=== PATIENT | female | born 1960 | race Caucasian/White ===

== ENCOUNTER → 2016-06-26 | Outpatient (CLI) | payer OTHER ==
[2016-06-26 12:19] LABS: EKG EKG PERFORMED
[2016-06-26 12:44] LABS: Basophils # (A) 0.1 k/uL (0-0.2); Basophils % (A) 1 %; CH 32.2; CHCM 33.7; Eosinophils # (A) 0.1 k/uL (0-0.7); Eosinophils % (A) 1 %; HCT 50.7 % (34.0-46.0); HDW 2.69; HGB 16.5 gm/dL (11.4-16.0); Luc # (Auto) 0.09; Luc % (Auto) 1; Lymphocytes # (A) 2.5 k/uL (1.0-4.8); Lymphocytes % (A) 29 %; MCH 31.3 pg (25.0-35.0); MCHC 32.6 g/dL (31.0-37.0); Monocytes # (A) 0.4 k/uL (0-1.0); Monocytes % (A) 5 %; Neutrophils # (A) 5.4 k/uL (1.3-7.7); Neutrophils % (A) 63 %; RBC 5.28 m/uL (3.80-5.40); WBC 8.5 k/uL (3.8-10.6); WBC (Perox) 8.15
[2016-06-26 12:54] LABS: Partial Thromboplastin Time 23.9 sec (22.0-30.0); Prothrombin Time 10.4 sec (9.0-12.0)
[2016-06-26 13:11] LABS: Anion Gap 9 mmol/L; Carbon Dioxide 29 mmol/L (22-30); Chloride 105 mmol/L (98-107); Potassium 4.7 mmol/L (3.5-5.1); Sodium 143 mmol/L (137-145)
== END | disposition home or self-care (01) ==
LOC: LABPAT 12:09
PROVIDERS: ATTEND Orthopaedic Surgery
DX: Z01.810 Encounter for preprocedural cardiovascular examination (principal); Z01.812 Encounter for preprocedural laboratory examination; M17.12 Unilateral primary osteoarthritis, left knee; Z51.81 Encounter for therapeutic drug level monitoring; Z79.01 Long term (current) use of anticoagulants
CPT/HCPCS: 80051; 85025; 85610; 85730; 87070; 93005

== ENCOUNTER 2016-07-13 10:49 | Inpatient (IN) | payer OTHER ==
[2016-07-03 09:34] VITALS: BMI 39.6
--- NOTE | 2016-07-12 14:55 | HP ---
DATE OF ADMISSION: 07/13/2016 Filomena Huber is a 55-year-old patient seen with symptomatic left knee osteoarthritis. After having options regarding treatment discussed, she elected to proceed with left total knee arthroplasty. Consent regarding the procedure was obtained. Her past medical history is hypothyroidism, attention deficit disorder. PAST SURGICAL HISTORY: Left knee arthroscopy. DAILY MEDICATIONS: 1. Adderall. 2. Requip. 3. Synthroid. 4. Tramadol. 5. Vistaril. Allergies are AMOXICILLIN. SOCIAL HISTORY: She smokes cigarettes. Physical evaluation of the left knee: Range of motion is -2 to 120 degrees, there is tenderness along the medial joint line. There is a positive medial Rhonda's. There is crepitus along the medial and patellofemoral compartments with range of motion. Ligaments are stable. Hip rotation is without pain. Her distal neurovascular exam is intact. Left knee radiographs reveal severe medial and moderate patellofemoral compartment osteoarthritis. IMPRESSION: Left knee osteoarthritis. PLAN: Left total knee arthroplasty.
[~2016-07-13 10:49] MED LIST: ACETAMINOPHEN TAB 500 MG TAB PO ONE; CLINDAMYCIN 900 MG in DEXTROSE 5% IN WATER 50 ML IVPB ONE; DEXAMETHASONE SOD PHOSPHATE 10 MG/ML 1 ML VIAL IV ONE; HYDROmorphone 1 MG/ML 1 ML SYRINGE IVP PRN; LIDOCAINE 1% 20 ML VIAL (10MG/ML) FOR IV START INTRADERMA PRN; MELOXICAM 7.5 MG TAB PO ONE; MIDAZOLAM 2 MG/2 ML VIAL IV PRN; ONDANSETRON 4 MG/2 ML VIAL IVP ONE; SCOPOLAMINE 1.5MG/72HR PATCH TRANSDERM ONE; TRANEXAMIC ACID 1,000 MG in SODIUM CHLORIDE 0.9% 100 ML IVPB ONE
[2016-07-13] MEDS: LACTATED RINGERS 1,000 ML IV SCH ×2 (11:40→18:08)
[2016-07-13] MEDS ORDERED: MIDAZOLAM 2 MG/2 ML VIAL IVP ONE (11:50)
[2016-07-13] MEDS ORDERED: ROPIVACAINE 246.25 MG, EPINEPHrine 0.5 MG, KETOROLAC 30 MG, cloNIDine HCL/PF 80 MCG, WA... MISCELLANE ONE ×5 (12:07)
[2016-07-13] MEDS ORDERED: TRANEXAMIC ACID 1,000 MG/10 ML VIAL ONE (13:12)
[2016-07-13] MEDS ORDERED: MIDAZOLAM 2 MG/2 ML VIAL ONE (13:12)
[2016-07-13] MEDS ORDERED: SODIUM CHLORIDE 0.9% 100 ML BAG ONE (13:12)
[2016-07-13] MEDS ORDERED: PROPOFOL 10 MG/ML 20 ML VIAL IV ONE (13:12)
[2016-07-13] MEDS ORDERED: LIDOCAINE 1% INJ 10MG/ML (20 ML MDV) ONE (13:12)
[2016-07-13] MEDS ORDERED: PHENYLEPHRINE-0.9% NACL SYG 1 MG/10 ML SYRINGE ONE (13:12)
[2016-07-13] MEDS ORDERED: ePHEDrine 50 MG/ML 1 ML AMP ONE (13:12)
[2016-07-13] MEDS ORDERED: fentaNYL (PF) 50 MCG/ML 2 ML AMP ONE (13:12)
[2016-07-13] MEDS ORDERED: ceFAZolin 3,000 MG in SODIUM CHLORIDE 0.9% IRRIGATIO 3,000 ML IRRIGATION ONE (13:43)
[2016-07-13] MEDS ORDERED: LACTATED RINGERS 1,000 ML IV ONE (14:24)
[2016-07-13] MEDS ORDERED: HYDROmorphone 1 MG/ML 1 ML SYRINGE IVP PRN ×3 (14:52)
[2016-07-13] MEDS ORDERED: HYDROcodone/APAP 7.5-325MG 1 EACH TAB PO PRN (14:52)
[2016-07-13] MEDS ORDERED: TEMAZEPAM 15 MG CAP PO PRN (14:52)
[2016-07-13] MEDS ORDERED: ONDANSETRON 4 MG/2 ML VIAL IVP PRN (14:52)
[2016-07-13] MEDS ORDERED: NALOXONE 0.4 MG/ML 1 ML VIAL IV PRN (14:52)
[2016-07-13] MEDS ORDERED: hydrOXYzine PAMOATE 25 MG CAP PO PRN (14:52)
--- NOTE | 2016-07-13 14:52 | P.OP ---
Date of Procedure: 07/13/16 Preoperative Diagnosis: Left knee osteoarthritis Postoperative Diagnosis: Left knee osteoarthritis Procedure(s) Performed: Left total knee arthroplasty Implants: 1. Lucio persona size 6 standard left cemented cruciate retaining femur 2. Lucio persona size D left cemented tibia 3. Lucio persona 12 mm medial congruent polyethylene tibial insert 4. Lucio persona 35 mm all polyethylene cemented patella Anesthesia: regional (Adductor canal block), local, spinal Surgeon: Martín Mcghee Client Relations Representative #1: Andrea Drake Estimated Blood Loss (ml): 100 Pathology: other (Bone) Condition: stable Disposition: PACU Indications for Procedure: 55-year-old patient seen with symptomatic left knee osteoarthritis. After having treatment options discussed, she elected to proceed with left total knee arthroplasty. Operative Findings: See description of procedure Description of Procedure: Patient was taken to the operative suite after having an adductor canal block performed by the department of anesthesia. Patient underwent a spinal anesthetic by the department of anesthesia. Patient was given preoperative IV intake antibiotics and TXA. A well-padded tourniquet was placed about the left lower extremity. The lower extremity was then prepped and draped in the normal sterile orthopedic fashion. A standard anterior incision was made sharply through skin. Dissection was taken down through the subcutaneous soft tissues down to the extensor mechanism. A medial arthrotomy was performed, patella was everted and knee was flexed. There was advanced osteoarthritis noted. A proximal tibial cutting guide was positioned. Proximal tibial cut was made. A distal intramedullary femoral cutting guide was positioned, distal femoral cut made. We placed the appropriate sizing guide and selected the appropriate size. A distal 4-in-1 femoral cutting block was positioned, distal femoral cuts were made. We now placed a trial femoral component into position, along with an appropriate size tibial tray and insert. We now took the knee through range of motion and had full extension good flexion and good overall soft tissue balance noted. The patella was everted and a flush cut made with patellar quad tendon. We templated the patella, appropriate drill holes were made. An appropriate trial patella was positioned, knee was taken through full range of motion with the patella tracking very nicely. The trial patella was removed. Drill holes were made through the femoral component. All trial components were removed after marking off the appropriate rotation of the tibia. Retractors were now positioned along the proximal tibia. An appropriate keel punch was made with the appropriate size tibial guide. The tourniquet was insufflated to 350. At this point appropriate size implants were chosen and opened. The joint was irrigated copiously with pulse lavage mechanical irrigation. We mixed antibiotic methylmethacrylate. The deep soft tissues were infiltrated with local analgesic. Once the methyl methacrylate was ready, the tibial component was cemented into place removing any excess methylmethacrylate. The femoral component was cemented into place removing the removing any excess methylmethacrylate. We then inserted the appropriate size polyethylene tibial insert. We made sure that it was locked into position. We took the knee into full extension, and then back in a flexion making sure we had removed any excess methylmethacrylate. The patellar component was then cemented down and secured with clamp. Excess methylmethacrylate removed. We kept the knee in full extension, patellar clamp in position until methylmethacrylate had hardened. Once it had hardened the patellar clamp was removed. The knee was taken through full range of motion. The patella tracked nicely. There was good soft tissue balancing. The tourniquet was now released. Additional hemostasis was achieved via electrocautery. A second gram of TXA was given. The wound was irrigated with pulse lavage mechanical irrigation. The superficial soft tissues with local analgesic. The extensor mechanism was repaired with Vicryl. We checked the repair with range of motion and it was stable. The subcutaneous soft tissues were repaired with Vicryl in layers. The skin was approximated with pernio/Dermabond. Sterile dressings were applied followed by loose web roll and James bandage. The patient was transferred to a bed, and taken to recovery in stable and satisfactory condition. Andrea KAN assisted with the procedure.
[2016-07-13] MEDS ORDERED: ROPIVACAINE 1,100 MG, SODIUM CHLORIDE 0.9% 330 ML MISCELLANE PRN ×2 (15:16)
--- NOTE | 2016-07-13 15:29 | XR ---
EXAMINATION TYPE: XR knee limited LT DATE OF EXAM: 07/13/2016 3:25 PM COMPARISON: NONE HISTORY: Post op FINDINGS: There is a prosthetic knee in near anatomic alignment. There is soft tissue edema and emphysema. IMPRESSION: 1. Postoperative change. Appears in near-anatomic alignment
[2016-07-13] MEDS ORDERED: ROPIVACAINE 5 MG/ML 30 ML VIAL MISCELLANE ONE (15:41)
--- NOTE | 2016-07-13 15:53 | P.ONQ ---
Anesthesiology Proc Note - PNB - Peripheral Nerve Block Performed Left Adductor Canal Infusion Time Out Performed: Yes Procedure Start Time: 11:53 Procedure Stop Time: 12:03 Indication: Acute Post-Operative Pain, Requested by physician Sedation Type: Sedate with meaningful contact maintained Preparation: Sterile Dressing Position: Supine Catheter: Indwelling Needle Types: On-Q Needle Size: 50mm (2") Needle Gauge: 21 Technique: Ultrasound Injectate: 0.5% Ropivacaine (see comment for volume) (25cc) Blood Aspirated: No Pain Paresthesia on Injection Noted: No Resistance on Injection: Normal
[2016-07-13] MEDS: traMADol 50 MG TAB PO SCH ×2 (18:07→21:00)
[2016-07-13 18:58] VITALS: RESP 16
[2016-07-13] MEDS: CLINDAMYCIN 900 MG in DEXTROSE 5% IN WATER 50 ML IVPB SCH ×2 (19:43)
[2016-07-13] MEDS: cycloSPORINE 0.05% OPHTH 0.4 ML DROPERETTE BOTH EYES SCH (19:45)
[2016-07-13] MEDS: SODIUM CHLORIDE 5% OPHTH DROPS 15 ML BTL BOTH EYES SCH (20:58)
[2016-07-13] MEDS: ENOXAPARIN 30 MG/0.3 ML SYRINGE SQ SCH (20:59)
[2016-07-13] MEDS ORDERED: SENNOSIDES-DOCUSATE SODIUM 1 EACH TAB PO SCH (21:00)
[2016-07-14] MEDS: CLINDAMYCIN 900 MG in DEXTROSE 5% IN WATER 50 ML IVPB SCH ×2 (00:27)
[2016-07-14] MEDS: LACTATED RINGERS 1,000 ML IV SCH ×2 (01:12)
[2016-07-14] MEDS: HYDROcodone/APAP 7.5-325MG 1 EACH TAB PO PRN ×2 (03:03→10:35)
[2016-07-14] MEDS ORDERED: LEVOTHYROXINE 50 MCG TAB PO SCH (06:30)
[2016-07-14] MEDS: traMADol 50 MG TAB PO SCH (08:07)
[2016-07-14] MEDS: ENOXAPARIN 30 MG/0.3 ML SYRINGE SQ SCH (08:07)
[2016-07-14 08:08] VITALS: BP 89/51; PULSE 66; TEMP 97
[2016-07-14] MEDS: cycloSPORINE 0.05% OPHTH 0.4 ML DROPERETTE BOTH EYES SCH (08:08)
[2016-07-14 08:10] LABS: Basophils # (A) 0.1 k/uL (0-0.2); Basophils % (A) 0 %; CH 31.8; CHCM 33.2; Eosinophils % (A) 0 %; HCT 40.4 % (34.0-46.0); HDW 2.79; Luc # (Auto) 0.06; Luc % (Auto) 0; Lymphocytes # (A) 2.2 k/uL (1.0-4.8); Lymphocytes % (A) 15 %; MCH 30.9 pg (25.0-35.0); MCHC 31.9 g/dL (31.0-37.0); MCV 96.7 fL (80.0-100.0); Mean Platelet Volume 8.9; Monocytes # (A) 0.6 k/uL (0-1.0); Monocytes % (A) 4 %; Neutrophils # (A) 11.8 k/uL (1.3-7.7); Neutrophils % (A) 80 %; RBC 4.17 m/uL (3.80-5.40); RDW 13.2 % (11.5-15.5); WBC 14.8 k/uL (3.8-10.6); WBC (Perox) 15.63
[2016-07-14] MEDS: SODIUM CHLORIDE 5% OPHTH DROPS 15 ML BTL BOTH EYES SCH (08:10)
[2016-07-14 08:14] LABS: HGB 12.9 gm/dL (11.4-16.0)
[2016-07-14] MEDS ORDERED: LORATADINE-PSEUDOEPH 5-120 MG 1 EACH TAB.ER.12H PO SCH (09:00)
[2016-07-14] MEDS ORDERED: MELOXICAM 7.5 MG TAB PO SCH (09:00)
[2016-07-14] MEDS ORDERED: NON-FORMULARY DRUG (Multivitamin/Iron/Folic Acid [Centrum Complete Multivit Tab] 1 TAB) PO SCH (09:00)
[2016-07-14] MEDS ORDERED: FAMOTIDINE 20 MG TAB PO SCH (09:00)
--- NOTE | 2016-07-14 10:03 | P.DS ---
Providers Date of admission: 07/13/16 10:49 Expected date of discharge: 07/14/16 Attending physician: Martín Mcghee Consults: 07/13/16 14:52 Consult Physician Routine Consulting Provider: Silvestre Melgoza Consult Reason/Comments: Medical management Do you want consulting provider notified?: Yes Primary care physician: Silvestre Melgoza Hospital Course: Date of admission: 07/13/2016 Date of discharge: 07/14/2016 Admission diagnosis: Status post left total knee arthroplasty Discharge diagnosis: Same Attending physician: Dr. Mcghee Surgical procedures: Left total knee arthroplasty Brief history: Patient is a 55-year-old female with a history of regressive primary left knee osteoarthritis. At this point patient has failed conservative treatment measures and has opted to proceed with a elective left total knee arthroplasty. Hospital course: Details of patient's surgery can be found in operative report. Patient tolerated the procedure well and was subsequently transported to orthopedic floor. Patient's orthopeidc and medical care was provided daily. Patient had daily laboratory tests performed for evaluation of overall blood counts. Patient had daily physical therapy to include strengthening range of motion as well as education with walker ambulation. Patient had daily CPM usage as part of their physical therapy program. Patient was treated with Lovenox for their postoperative DVT prophylaxis during their inpatient stay. Patient was noted to have a relatively uneventful postoperative course. Patient reported satisfactory pain control with oral pain medications by postoperative day 0. Patient showed satisfactory progress with physical therapy. Patient moved steadily through the program and had no difficulty meeting the goals by postoperative day 1. Given patient's otherwise satisfactory course and having met physical therapy goals, plan is to discharge patient home on postoperative day 1. Discharge condition/disposition: Patient will be discharged home in stable condition. Discharge medications: Instructions are given on resumption of patient's normal daily medications per primary care recommendation, in addition patient will be prescribed aspirin 325 mg, Colace 100 mg, Pepcid 20 mg, [place] 7.5 mg/325 mg. Discharge instructions: 1. Wound care and infection precautions, keep incision dry and covered while showering, no lotions, creams, moisturizers. No soaking, tubs, pools, hottubs. Do not scrub over the incision. 2. Weight-bear as tolerated with walker / cane until follow-up. 3. Ice and elevate when necessary. Do not exceed 20 minutes per hour with ice pack. 4. Utilize compression sleeve until seen at first follow up appointment. 5. Visiting nursing care. 6. Home physical therapy including home CPM. 7. Pain meds and anticoagulants per prescription. 8. Pain medication has potential to cause constipation. Increase oral fluid and fiber intake. Contact primary care provider if you have not had a bowel movement within 48 hours after discharge 9. No anti-inflammatory medication until discussed at first post operative visit, this including Motrin, Aleve, Mobic, Diclofenac. 10. Follow up in office at 2 weeks postop with Noah Drake PA-C 11. Follow up with your primary care doctor 7-10 days after discharge. 12. Contact [facility] with any questions, . Procedures: Left total knee arthroplasty Patient Condition at Discharge: Good Plan - Discharge Summary New Discharge Prescriptions: Aspirin 325 mg PO BID #60 tab Docusate [Colace] 100 mg PO DAILY #20 capsule Famotidine [Pepcid] 20 mg PO DAILY #20 tablet HYDROcodone/APAP 7.5-325MG [[place] 7.5] 1 - 2 each PO Q6HR PRN #60 tab PRN Reason: Pain Discharge Medication List Cyanocobalamin [Vitamin B-12] 500 mcg PO DAILY 03/25/16 [History] Levothyroxine Sodium [Synthroid] 50 mcg PO DAILY 03/25/16 [History] Loratadine-Pseudoeph 5-120 mg [Claritin-D 12 HR] 1 tab PO QAM 03/25/16 [History] Multivitamin/Iron/Folic Acid [Centrum Complete Multivit Tab] 1 tab PO DAILY 11/03 [History] Sodium Chloride 5% Ophth Soln [Yo 128] 1 drops BOTH EYES QID 03/25/16 [History ] cycloSPORINE 0.05% OPHTH SOLN [Restasis] 1 applicator BOTH EYES Q12H 03/25/16 [ History] rOPINIRole HCL [Requip] 1 mg PO HS 03/25/16 [History] traMADol HCL [Ultram] 50 mg PO Q6HR PRN 03/25/16 [History] Aspirin 325 mg PO BID #60 tab 07/14/16 [Rx] Docusate [Colace] 100 mg PO DAILY #20 capsule 07/14/16 [Rx] Famotidine [Pepcid] 20 mg PO DAILY #20 tablet 07/14/16 [Rx] HYDROcodone/APAP 7.5-325MG [[place] 7.5] 1 - 2 each PO Q6HR PRN #60 tab 07/14/16 [ Rx] Follow up Appointment(s)/Referral(s): Andrea Drkae PAC [PHYSIC[facility]] - 2 Weeks Activity/Diet/Wound Care/Special Instructions: Walker - has at home Home Care [facility] - [phone] Orthopedic Discharge Instructions: 1. Wound care and infection precautions, keep incision dry and covered while showering, no lotions, creams, moisturizers. No soaking, pools, hot tubs. Do not scrub over incision. 2. Weight-bear as tolerated with walker / cane until follow-up. 3. Ice and elevate when necessary. Do not exceed 20 minutes per hour with ice pack. 4. Utilize compression sleeve until seen at first follow up appointment. 5. Visiting nursing care. 6. Home physical therapy including home CPM. 7. Pain meds and anticoagulants per prescription. 8. Pain medication has potential to cause constipation. Increase oral fluid and fiber intake. Contact primary care provider if you have not had a bowel movement within 48 hours after discharge. 9. No anti-inflammatory medication until discussed at first post operative visit, this including Motrin, Aleve, Mobic, Diclofenac. 10. Follow up in office at 2 weeks postop with Noah Drake PA-C 11. Follow up with your primary care doctor 7-10 days after discharge. 12. Contact [facility] with any questions, . Discharge Disposition: HOME WITH HOME HEALTH SERVICES
--- NOTE | 2016-07-14 10:05 | P.PN ---
Subjective Principal diagnosis: Status post left total knee arthroplasty Patient seen today resting in her hospital bed, she appears to be no acute distress. Her pain is well-controlled at this time. She's annulated well with therapy. Urinary cath was discontinued. She denies headaches, lightheadedness , chest pain or shortness of breath. Objective - Vital Signs Vital signs: Vital Signs Temp 97.0 F L 07/14/16 07:00 Pulse 66 07/14/16 07:00 Resp 16 07/14/16 07:00 BP 89/51 07/14/16 07:00 Pulse Ox 90 L 07/14/16 07:00 Intake & Output 07/13/16 07/14/16 07/14/16 18:59 06:59 18:59 Intake Total 4756 900 400 Output Total 750 1300 Balance 4006 -400 400 Weight 95.25 kg Intake: IV 4756 900 Lactated Ringers 1,000 ml 900 @ 100 mls/hr IV .Q10H FLAVIO Rx#:[id number] Oral 400 Output: Urine 650 1300 Uretheral (Lazo) 1300 Estimated Blood Loss 100 Other: Voiding Method Indwelling Catheter Indwelling Catheter - Exam Left lower extremity: Incision is clean, dry, and intact. Ecchymosis on the medial and lateral aspects the incision. Calf is soft, no tenderness with palpation. Plantar flexion, dorsiflexion, EHL, FHL are intact. Sensory exam to light touch throughout the extremities intact, cap refills less than 3 seconds. - Labs CBC & Chem 7: 07/14/16 07:29 Labs: Abnormal Lab Results - Last 24 Hours (Table) 07/14/16 Range/Units 07:29 WBC 14.8 H (3.8-10.6) k/uL Neutrophils # 11.8 H (1.3-7.7) k/uL Assessment and Plan Plan: Assessment: 1. Postop day #1 status post left total knee arthroplasty Plan: 1. Pain control, patient will utilize tramadol and [place] after discharge 2. Continue use of Q pump, removed postop day 3 3. Daily dressing changes/ice and elevate 4. Encourage incentive spirometer 5. Continue PT and CPM 6. Medical recommendations 7. Discharge planning: Patient will likely be discharged home today Time with Patient: Less than 30
--- NOTE | 2016-07-14 10:42 | P.PN ---
Progress Note - Text 07/14 621am 55-year-old female status post total knee replacement by Dr. Mcghee. Patient evaluated for pain control this morning, VAS of 3 was noted with solution running at 8 mL an hour. No motor deficits
[2016-07-14] MEDS ORDERED: MULTIVITAMINS, THERA 1 EACH TAB PO SCH (12:00)
[2016-07-14] MEDS ORDERED: CYANOCOBALAMIN 500 MCG TAB PO SCH (12:00)
== END 2016-07-14 12:56 | disposition home health service (06) | DRG 470 ==
LOC: 2ORMAIN 10:49 → EDSTATUS 12:40 → 3SUR 14:48
PROVIDERS: ADMIT Orthopaedic Surgery; ATTEND Orthopaedic Surgery
PROC: 0SRD0J9 Replacement of Left Knee Joint with Synthetic Substitute, Cemented, Open Approach (ICD-10-PCS; principal; 2016-07-13 12:40)
DX: M17.12 Unilateral primary osteoarthritis, left knee (principal); E03.9 Hypothyroidism, unspecified; F17.210 Nicotine dependence, cigarettes, uncomplicated; Z79.899 Other long term (current) drug therapy; F90.9 Attention-deficit hyperactivity disorder, unspecified type
CPT/HCPCS: 85025; 88300

== ENCOUNTER → 2016-08-31 | Outpatient (CLI) | payer OTHER ==
--- NOTE | 2016-08-31 11:15 | US ---
EXAMINATION TYPE: US venous doppler duplex LE LT DATE OF EXAM: 08/31/2016 10:56 AM COMPARISON: No previous CLINICAL HISTORY: M79.662 Pain LLE, R22.42 Swelling LLE R22.42. Intermittent left calf pain SIDE PERFORMED: Left Grayscale, color Doppler, spectral Doppler imaging performed of the deep veins of the left lower extr emity. Left Leg: Appears negative for DVT IMPRESSION: No evident deep venous thrombosis at or above the left knee
== END | disposition home or self-care (01) ==
LOC: RADUSWWP 10:27
PROVIDERS: ATTEND Orthopaedic Surgery
DX: M79.662 Pain in left lower leg (principal); R22.42 Localized swelling, mass and lump, left lower limb

== ENCOUNTER 2016-12-06 14:33 | Emergency (ER) | payer OTHER ==
[2016-12-06 15:01] VITALS: BP 132/77; PULSE 86; RESP 20; TEMP 97.5
[2016-12-06] MEDS ORDERED: methylPREDNISolone SOD SUCCI 125 MG/2 ML VIAL IM ONE (15:50)
[2016-12-06] MEDS ORDERED: ORPHENADRINE 30 MG/ML 2 ML VIAL IM STA (15:50)
--- NOTE | 2016-12-06 15:50 | ED ---
Back Pain HPI - General Chief Complaint: Back Pain/Injury Stated Complaint: back pain Time Seen by Provider: 12/06/16 15:36 Source: patient, RN notes reviewed Limitations: no limitations - History of Present Illness Initial Comments: 48-year-old female presented to the ER with back pain that was radiating down the right leg. She states that she does have a history of sciatic pain as well as a bulging disc which she has had an MRI for the past. She states that this condition does come and go however this is them most severe discomfort lasting for the longest time that she has had. She is able to walk however it is painful. She does have some numbness, burning, tingling down the right groin and thigh. She denies any other constitutional symptoms including headache, blurred vision, nausea or vomiting, abdominal pain, diarrhea, loss of bladder or bowel control. she has tried to take Flexeril, [place], Tylenol Motrin with little relief. - Related Data Home Medications Medication Instructions Recorded Confirmed Cyanocobalamin [Vitamin B-12] 500 mcg PO DAILY 03/25/16 07/13/16 Levothyroxine Sodium [Synthroid] 50 mcg PO DAILY 03/25/16 07/13/16 Loratadine-Pseudoeph 5-120 mg 1 tab PO QAM 03/25/16 07/13/16 [Claritin-D 12 HR] Multivitamin/Iron/Folic Acid 1 tab PO DAILY 03/25/16 07/13/16 [Centrum Complete Multivit Tab] Sodium Chloride 5% Ophth Soln 1 drops BOTH EYES QID 03/25/16 07/13/16 [Yo 128] cycloSPORINE 0.05% OPHTH SOLN 1 applicator BOTH EYES Q12H 03/25/16 07/13/16 [Restasis] rOPINIRole HCL [Requip] 1 mg PO HS 03/25/16 07/13/16 traMADol HCL [Ultram] 50 mg PO Q6HR PRN 03/25/16 07/13/16 Previous Rx's Medication Instructions Recorded Aspirin 325 mg PO BID #60 tab 07/14/16 Docusate [Colace] 100 mg PO DAILY #20 capsule 07/14/16 Famotidine [Pepcid] 20 mg PO DAILY #20 tablet 07/14/16 HYDROcodone/APAP 7.5-325MG [[place] 1 - 2 each PO Q6HR PRN #60 tab 07/14/16 7.5] Cyclobenzaprine [Flexeril] 10 mg PO TID #20 tab 12/06/16 HYDROcodone/APAP 5-325MG [[place] 1 - 2 tab PO Q6HR PRN #20 tab 12/06/16 5-325] Allergies Allergy/AdvReac Type Severity Reaction Status Date / Time amoxicillin Allergy Rash/Hives Verified 12/06/16 15:01 Review of Systems ROS Statement: Those systems with pertinent positive or pertinent negative responses have been documented in the HPI. ROS Other: All systems not noted in ROS Statement are negative. Past Medical History Past Medical History: Supraventricular Tachycardia (SVT), Thyroid Disorder Additional Past Medical History / Comment(s): hx episode of SVT alcohol related , varicose veins, arthritis in knees, History of Any Multi-Drug Resistant Organisms: None Reported Past Surgical History: Joint Replacement, Orthopedic Surgery Additional Past Surgical History / Comment(s): anastasia carpal tunnel, left knee Past Anesthesia/Blood Transfusion Reactions: Motion Sickness Past Psychological History: No Psychological Hx Reported Smoking Status: Current every day smoker Past Alcohol Use History: None Reported Past Drug Use History: None Reported - Past Family History Father Family Medical History: Cancer General Exam Limitations: no limitations General appearance: alert, in distress (Secondary to pain) Head exam: Present: atraumatic, normocephalic Eye exam: Present: normal appearance, PERRL, EOMI Pupils: Present: normal accommodation Neck exam: Present: normal inspection Respiratory exam: Present: normal lung sounds bilaterally Cardiovascular Exam: Present: regular rate, normal rhythm Back exam: Present: normal inspection, full ROM (However she does have increased pain with right sided flexion and posterior flexion.), other ( Negative paraspinal or spinal point tenderness. Negative site were right hip point tenderness. Negative Daquan's test. Positive straight leg raise.) Neurological exam: Present: alert, oriented X3, CN II-XII intact, abnormal gait (Antalgic) Psychiatric exam: Present: normal affect, normal mood Skin exam: Present: warm, dry, intact Course Vital Signs 12/06/16 14:59 Temperature 97.5 F L Pulse Rate 86 Respiratory 20 Rate Blood Pressure 132/77 O2 Sat by Pulse 96 Oximetry Medical Decision Making - Medical Decision Making 56-year-old female presented to the ER with exacerbation of chronic back pain. Due to are the knowing MRI results of the positive bulging disks will recommend treating the discomfort and recommending follow-up with primary care and/or orthopedics for probable physical therapy. I did not feel as though she needed any imaging today as there was no point tenderness. This is consistent with an exacerbation of her radiculopathy. In the ER she was given a steroid as well as muscle relaxer to help control pain and decrease inflammation. She was given Flexeril to take on an outpatient basis. She may continue her over-the- counter pain relievers with Motrin and Tylenol as needed. Encouraged to follow- up with orthopedics and primary care this week to return to the ER with any new or worsening symptoms or concerns. Reflexes symptoms of loss of bladder or bowel control or numbness on the ability to walk were discussed with the patient. Was agreeable to treatment plan and voiced understanding. Disposition Clinical Impression: Sciatica Disposition: HOME SELF-CARE Condition: Good Instructions: Acute Low Back Pain (ED) Additional Instructions: Follow-up with primary care physician. Return to the ER if any new or worsening symptoms or concerns. Prescriptions: Cyclobenzaprine [Flexeril] 10 mg PO TID #20 tab HYDROcodone/APAP 5-325MG [[place] 5-325] 1 - 2 tab PO Q6HR PRN #20 tab PRN Reason: Pain Referrals: Silvestre Melgoza MD [Primary Care Provider] - 1-2 days Time of Disposition: 16:00
== END 2016-12-06 16:08 | disposition home or self-care (01) ==
LOC: EC 14:33
DX: M54.31 Sciatica, right side (principal); E07.9 Disorder of thyroid, unspecified; F17.200 Nicotine dependence, unspecified, uncomplicated; Z88.0 Allergy status to penicillin; Z79.899 Other long term (current) drug therapy
CPT/HCPCS: 99283; 96372 ×2; J2360; J2930

== ENCOUNTER → 2017-03-09 | Outpatient (CLI) | payer OTHER ==
--- NOTE | 2017-03-10 07:36 | MM ---
Reason for exam: screening (asymptomatic). Last mammogram was performed 16 years and 3 months ago. History: Took estrogen for 1 month. Physical Findings: A clinical breast exam by your physician is recommended on an annual basis and results should be correlated with mammographic findings. MG 3D Screening Mammo W/Cad Bilateral CC and MLO view(s) were taken. Prior study comparison: December 10, 2000, bilateral screening mammogram. October 21, 1999, bilateral screening mammogram. The breast tissue is almost entirely fat. There is no discrete abnormality. No significant changes when compared with prior studies. ASSESSMENT: Negative, BI-RAD 1 RECOMMENDATION: Routine screening mammogram of both breasts in 1 year.
== END | disposition home or self-care (01) ==
LOC: RADMAMWWP 09:10
PROVIDERS: ATTEND Family Medicine
DX: Z12.31 Encounter for screening mammogram for malignant neoplasm of breast (principal)
CPT/HCPCS: 77063; G0202

== ENCOUNTER → 2021-12-15 | Outpatient (CLI) | payer MEDICAID ==
--- NOTE | 2021-12-16 15:03 | MM ---
Reason for Exam: Screening (asymptomatic). Last mammogram was performed 4 year(s) and 9 month(s) ago. Patient History: Menarche at age 10. First Full-Term at age 16. Left ovary removed at age 43. Right ovary removed at age 43. Postmenopausal. Estrogen for 1 month. Risk Values: Gabrielle 5 year model risk: 1.1%. NCI Lifetime model risk: 4.9%. Prior Study Comparison: 10/21/1999 Bilateral Screening Mammogram, [facility]. 12/10/2000 Bilateral Screening Mammogram, [facility]. 03/09/2017 Bilateral Screening Mammogram, [facility]. Tissue Density: There are scattered fibroglandular densities. Findings: Analyzed By CAD. There is a focal asymmetry within the right breast in craniocaudal projection. Additional evaluation of this changing area is recommended. No suspicious groups of microcalcifications, spiculated or lobular masses, architectural distortion or other secondary signs of malignancy are mammographically apparent. Overall Assessment: Incomplete: need additional imaging evaluation, BI-RAD 0 Management: Diagnostic Mammogram of the right breast. A negative mammogram report should not preclude additional follow up of suspicious palpable abnormalities. Patient should continue monthly self breast exam. A clinical breast exam by your physician is recommended on an annual basis and results should be correlated with mammographic findings. Electronically signed and approved by: Marcos Cameron D.O. Radiologis
== END | disposition home or self-care (01) ==
LOC: RADMAMWWP 15:57
PROVIDERS: ATTEND Family Medicine
DX: Z12.31 Encounter for screening mammogram for malignant neoplasm of breast (principal)
CPT/HCPCS: 77067

== ENCOUNTER → 2021-12-19 | Outpatient (CLI) | payer MEDICAID ==
--- NOTE | 2021-12-24 08:58 | MM ---
Reason for Exam: Additional evaluation requested from abnormal screening. Last screening mammogram was performed less than 1 month ago. Patient History: Menarche at age 10. First Full-Term at age 16. Left ovary removed at age 43. Right ovary removed at age 43. Postmenopausal. Estrogen for 1 month. Risk Values: Gabrielle 5 year model risk: 1.1%. NCI Lifetime model risk: 4.9%. Prior Study Comparison: 10/21/1999 Bilateral Screening Mammogram, [facility]. 12/10/2000 Bilateral Screening Mammogram, [facility]. 03/09/2017 Bilateral Screening Mammogram, [facility]. 12/15/2021 Bilateral MG screening mammo w CAD, [facility]. Tissue Density: Right: There are scattered fibroglandular densities. Findings: Analyzed By CAD. Mammogram There is a focal asymmetry at the 12:00 position 7 cm from the nipple within the right breast. This is an interval change from 2017. This is persistent on compression although not clearly identified on the medial lateral view. Additional workup is recommended. Technique: Method: Targeted. Findings: Ultrasound was performed with attention to the 12:00 position right breast. A discrete suspicious area is not identified. The general region there is a hyperechoic area of parenchymal tissue present. Short-term follow-up is recommended. Overall Assessment: Probably benign, BI-RAD 3 Assessment: MG work up mamm w CAD RT - Right: Incomplete: need additional imaging evaluation, BI-RAD 0. US breast workup limited RT - Right: Probably benign, BI-RAD 3. Management: Diagnostic Mammogram of the right breast in 3 months. Diagnostic Breast MRI of the right breast. A clinical breast exam by your physician is recommended on an annual basis and results should be correlated with mammographic findings. Results were given to the patient verbally at the time of exam. Electronically signed and approved by: Marcos Cameron D.O. Radiologis
== END | disposition home or self-care (01) ==
LOC: RADMAMWWP 09:00
PROVIDERS: ATTEND Family Medicine
DX: R92.8 Other abnormal and inconclusive findings on diagnostic imaging of breast (principal); Z78.0 Asymptomatic menopausal state
CPT/HCPCS: 77065

== ENCOUNTER → 2022-01-23 | Outpatient (CLI) | payer MEDICAID ==
--- NOTE | 2022-01-23 09:46 | BMR ---
EXAMINATION TYPE: MR breast RT wo/w con DATE OF EXAM: 01/23/2022 COMPARISON: Screening mammogram December 15, 2021 BI-RADS 0. Diagnostic right breast mammogram December 19 and Limited right breast diagnostic ultrasound same date BI-RADS 3. HISTORY: Fibrous breast tissue, abnormal mammogram. TECHNIQUE: A series of fat and water weighted images in the long and short axis views of both breasts are obtained in conjunction with dynamic contrast MRI with subtraction technique. The patient was i njected with 9 mL intravenous Gadavist gadolinium contrast. Three-dimensional and additional postpr ocessing imaging is created on independent workstation and reviewed during official interpretation of this study. FINDINGS: Both breasts remain predominantly fatty replaced with some scattered fibroglandular tissue identified. No concerning axillary adenopathy is seen bilaterally. Benign-appearing bilateral axillar y lymph nodes are noted. T2 and STIR weighted images show no significant cystic change or suspicious focal fluid collections in either breast. Dynamic postcontrast imaging shows no significant backgroun d enhancement. Delayed dynamic imaging shows no suspicious internal mammary adenopathy. No suspicious enhancing masses or pathologic enhancement in either breast. Particular attention to th e anterior to middle depth upper aspect right breast at area of mammogram concern correlates with sli ghtly more prominent fibroglandular tissue. No abnormal skin thickening is seen bilaterally. The ches t wall appears intact. Impression: No MRI evidence for invasive malignancy either breast. BI-RADS 1 negative study Recommendation: Patient is due for annual bilateral breast mammogram November 2022 [facility]
== END | disposition home or self-care (01) ==
LOC: RADMRIMAIN 07:17
PROVIDERS: ATTEND Family Medicine
DX: R92.8 Other abnormal and inconclusive findings on diagnostic imaging of breast (principal)
CPT/HCPCS: 77048; A9585

== ENCOUNTER 2022-02-27 08:33 | Day surgery (SDC) | payer MEDICAID ==
[~2022-02-27 08:33] MED LIST changes: -ACETAMINOPHEN TAB 500 MG TAB PO ONE; -CLINDAMYCIN 900 MG in DEXTROSE 5% IN WATER 50 ML IVPB ONE; -DEXAMETHASONE SOD PHOSPHATE 10 MG/ML 1 ML VIAL IV ONE; -HYDROmorphone 1 MG/ML 1 ML SYRINGE IVP PRN; +LACTATED RINGERS 1,000 ML IV SCH; -LIDOCAINE 1% 20 ML VIAL (10MG/ML) FOR IV START INTRADERMA PRN; -MELOXICAM 7.5 MG TAB PO ONE; -MIDAZOLAM 2 MG/2 ML VIAL IV PRN; -ONDANSETRON 4 MG/2 ML VIAL IVP ONE; -SCOPOLAMINE 1.5MG/72HR PATCH TRANSDERM ONE; -TRANEXAMIC ACID 1,000 MG in SODIUM CHLORIDE 0.9% 100 ML IVPB ONE
[2022-02-27] MEDS ORDERED: LIDOCAINE 2% INJ 20 MG/ML (2 ML VIAL) ONE (09:37)
[2022-02-27] MEDS ORDERED: PROPOFOL 10 MG/ML 20 ML VIAL IV ONE (09:37)
--- NOTE | 2022-02-27 09:40 | P.GSHP ---
History of Present Illness H&P Date: 02/27/22 61yo F presents after positive finding on Cologuard test. Denies any family history of colon cancer. Denies blood in stool. No history of iBD. - Review of Systems All systems: negative Past Medical History Past Medical History: Hyperlipidemia, Supraventricular Tachycardia (SVT), Thyroid Disorder Additional Past Medical History / Comment(s): hx episode of SVT alcohol related, varicose veins, arthritis in knees, restless leg. History of Any Multi-Drug Resistant Organisms: None Reported Past Surgical History: Joint Replacement, Orthopedic Surgery Additional Past Surgical History / Comment(s): anastasia carpal tunnel release, left knee Past Anesthesia/Blood Transfusion Reactions: Motion Sickness Additional Past Anesthesia/Blood Transfusion Reaction / Comment(s): no blood transfusions. Smoking Status: Current every day smoker - Past Family History Father Family Medical History: Cancer Additional Family Medical History / Comment(s): lung cancer Mother Family Medical History: CVA/TIA Medications and Allergies Home Medications Medication Instructions Recorded Confirmed Type Levothyroxine Sodium [Synthroid] 50 mcg PO DAILY 03/25/16 02/27/22 History Loratadine-Pseudoeph 5-120 mg 1 tab PO QAM 03/25/16 02/27/22 History [Claritin-D 12 HR] Sodium Chloride 5% Ophth Soln 1 drops BOTH EYES QID 03/25/16 02/27/22 History [Yo 128] cycloSPORINE 0.05% OPHTH SOLN 1 applicator BOTH EYES Q12H 03/25/16 02/27/22 History [Restasis] rOPINIRole HCL [Requip] 1 mg PO HS 03/25/16 02/27/22 History Rosuvastatin Calcium 10 mg PO DAILY 02/26/22 02/27/22 History Allergies Allergy/AdvReac Type Severity Reaction Status Date / Time amoxicillin Allergy Rash/Hives Verified 02/27/22 08:40 Surgical - Exam Osteopathic Statement: *. No significant issues noted on an osteopathic structural exam other than those noted in the History and Physical/Consult. Vital Signs Resp BP Pulse Ox 18 155/81 95 02/27/22 08:47 02/27/22 08:47 02/27/22 08:47 - General well nourished, no distress - Eyes normal ocular movement - ENT no hearing loss - Neck trachea midline - Respiratory normal respiratory effort - Abdomen Abdomen: soft, non tender Assessment and Plan Plan: 61yo F with positive cologuard test. Plan for colonoscopy. Risks, benefits and alternatives were provided prior to obtaining consent. Further recommendations after procedure.
--- NOTE | 2022-02-27 10:15 | P.PCN ---
Date of Procedure: 02/27/22 Preoperative Diagnosis: Positive cologuard test Postoperative Diagnosis: Multiple Colon polyps Diverticulosis Procedure(s) Performed: Colonoscopy with polypectomy Anesthesia: MAC Surgeon: Christina Lanier Pathology: other (Polyps of the cecum, transverse, sigmoid colon and rectum) Condition: stable Disposition: same day Indications for Procedure: 61yo F with recent positive cologuard test. No active bleeding noted. Risk, benefits and alternatives were provided. Operative Findings: Multiple colon polyps as per report Diverticulosis Description of Procedure: The patient was brought to the endoscopy suite. The patient was then placed in left lateral decubitus position and adequate sedation was achieved using conscious sedation. A digital rectal exam was performed and internal hemorrhoids were palpated. An endoscope was then placed in the rectum and advanced to the cecum as identified by landmarks including the appendix orifice and the ileocecal valve. The prep was good. The colonoscope was then slowly withdrawn, examining for any mucosal abnormalities. The cecum, ascending, transverse, descending and sigmoid colon were visualized adequately. There were no large neoplastic lesions noted throughout the colon. Multiple polyps noted throughout the colon. Largest was in the cecum. This was removed with hot snare polypectomy. 2 polyps were noted in the transverse colon and these were removed with forcep polypectomy. Additional polyps were noted in the sigmoid, these were small and flat and removed with forcep polypectomy. Multiple small polyps were noted in the rectum. These were removed with both hot snare polypectomy and forceps. Several polyps appeared flat and hyperplastic. These were removed in similar fashion. Mild diverticulosis was noted throughout the colon. Retroflexion was performed in the rectum and internal hemorrhoids were visible. Excess air was removed, the colonoscope withdrawn and the procedure terminated. The patient was then transferred to the recovery unit in stable condition. Repeat colonoscopy should be performed in 1 year due to number of polyps.
[2022-02-27 10:42] VITALS: BP 146/87; PULSE 63; RESP 20
== END 2022-02-27 10:57 | disposition home or self-care (01) ==
LOC: ORWHC2ENDO 08:33
PROVIDERS: ATTEND Surgery
DX: D12.3 Benign neoplasm of transverse colon (principal); D12.0 Benign neoplasm of cecum; K62.1 Rectal polyp; K57.30 Diverticulosis of large intestine without perforation or abscess without bleeding; K64.8 Other hemorrhoids; E78.5 Hyperlipidemia, unspecified; E07.9 Disorder of thyroid, unspecified; I47.1 Supraventricular tachycardia; F17.200 Nicotine dependence, unspecified, uncomplicated; Z88.0 Allergy status to penicillin; Z79.899 Other long term (current) drug therapy; Z79.890 Hormone replacement therapy; Z80.1 Family history of malignant neoplasm of trachea, bronchus and lung; Z82.3 Family history of stroke
CPT/HCPCS: 88305; 45380; 45385; J2704; J2001

== ENCOUNTER → 2022-03-11 | Outpatient (CLI) | payer MEDICAID ==
--- NOTE | 2022-03-11 09:26 | MM ---
Reason for Exam: Follow-up at short interval from prior study. Last screening mammogram was performed 3 month(s) ago. Patient History: Menarche at age 10. First Full-Term at age 16. Left ovary removed at age 43. Right ovary removed at age 43. Postmenopausal. Risk Values: Gabrielle 5 year model risk: 1.1%. NCI Lifetime model risk: 4.9%. Prior Study Comparison: 03/09/2017 Bilateral Screening Mammogram, [facility]. 12/15/2021 Bilateral MG screening mammo w CAD, [facility]. 12/19/2021 Right MG work up mamm w CAD RT, [facility]. Tissue Density: Right: The breast tissue is heterogeneously dense. This may lower the sensitivity of mammography. Findings: Analyzed By CAD. No distinct mass or distortion. Fibroglandular tissue redemonstrated. No suspicious calcifications. Overall Assessment: Benign, BI-RAD 2 Management: Screening Mammogram of both breasts in 6 months. A clinical breast exam by your physician is recommended on an annual basis and results should be correlated with mammographic findings. This exam should not preclude additional follow-up of suspicious palpable abnormalities. Results were given to the patient verbally at the time of exam. Electronically signed and approved by: Omkar Gross M.D. Radiologis
== END | disposition home or self-care (01) ==
LOC: RADMAMWWP 08:49
PROVIDERS: ATTEND Family Medicine
DX: R92.8 Other abnormal and inconclusive findings on diagnostic imaging of breast (principal); Z78.0 Asymptomatic menopausal state
CPT/HCPCS: 77061; 77065

== ENCOUNTER → 2022-12-16 | Outpatient (CLI) | payer BC ==
--- NOTE | 2022-12-16 09:59 | MM ---
Reason for Exam: Screening (asymptomatic). Last screening mammogram was performed 12 month(s) ago. Patient History: Menarche at age 10. First Full-Term at age 16. Left ovary removed at age 43. Right ovary removed at age 43. Postmenopausal. Risk Values: Gabrielle 5 year model risk: 1.2%. NCI Lifetime model risk: 4.7%. Prior Study Comparison: 12/15/2021 Bilateral MG screening mammo w CAD, [facility]. 12/19/2021 Right MG work up mamm w CAD RT, [facility]. 03/11/2022 Right MG 3D diag mammo w/cad RT, [facility]. Tissue Density: There are scattered fibroglandular densities. Findings: Analyzed By CAD. There is no suspicious group of microcalcifications or new suspicious mass in either breast. Overall Assessment: Negative, BI-RAD 1 Management: Screening Mammogram of both breasts in [address] [facility] will attempt to contact patient to return for supplemental views and ultrasound if indicated. Patient should continue monthly self-breast exams. A clinical breast exam by your physician is recommended on an annual basis. This exam should not preclude additional follow-up of suspicious palpable abnormalities. Note on Gabrielle scores and lifetime risk: 1. A Gabrielle score greater than 3% is considered moderate risk. If this is the case, consider specialist referral to assess eligibility for a risk reducing agent. 2. If overall lifetime risk for the development of breast cancer is 20% or higher, the patient may qualify for future screening with alternating mammogram and breast MRI. Electronically signed and approved by: Amador Mcfarlane DO
== END | disposition home or self-care (01) ==
LOC: RADMAMWWP 09:31
PROVIDERS: ATTEND Family Medicine
DX: Z12.31 Encounter for screening mammogram for malignant neoplasm of breast (principal); Z78.0 Asymptomatic menopausal state
CPT/HCPCS: 77063; 77067

== ENCOUNTER → 2023-12-20 | Outpatient (CLI) | payer MEDICARE ==
--- NOTE | 2023-12-20 12:50 | BD ---
EXAMINATION TYPE: Axial Bone Density DATE OF EXAM: 12/20/2023 CLINICAL HISTORY: 63 years old Female. ICD-10 CODE: Z78.0 ASYMP PAT STATE Height: 61 Weight: 252.3 FRAX RISK QUESTIONS: Alcohol (3 or more units per day): NO Family History (Parent hip fracture): no Glucocorticoids (More than 3mos): no (Ex: prednisone, prednisolone, methylprednisolone, dexamethasone, and hydrocortisone). History of Fracture in Adulthood: no Secondary Osteoporosis: 1. Type 1 Diabetes: no 2. Hyperthyroidism: no 3. Menopause before 45: yes 4. Malnutrition: no 5. Chronic liver disease: no Rheumatoid Arthritis: no Current Tobacco Use: no RISK FACTORS HISTORY OF: Surgery to Spine/Hip(right/left)/Wrist (right/left): no EXAM MEASUREMENTS: Bone mineral densitometry was performed using the [employer] System. Bone mineral density as measured about the Lumbar spine is: ----- L1-L4(G/cm2): 1.078 T Score Values are as follows: ----- L1: -1.7 ----- L2: -1.0 ----- L3: -1.4 ----- L4: 0.4 ----- L1-L4: -0.8 Z Score Values are as follows: ----- L1: -1.3 ----- L2: -0.6 ----- L3: -1.0 ----- L4: 0.8 ----- L1-L4: -0.4 Bone mineral density : baseline Bone mineral density about the R hip (g/cm2): 0.943 Bone mineral density about the L hip (g/cm2): 1.047 T Score values are as follows: -----R Neck: -1.4 -----L Neck: -1.1 -----R Total: -0.5 -----L Total: 0.3 Z Score values are as follows: -----R Neck: -0.7 -----L Neck: -0.3 -----R Total: -0.1 -----L Total: 0.7 Bone mineral density : baseline FRAX%s: The graph provided illustrates a -7.2 %chance for a major osteoporotic fx and a -0.7% chance for the hips probability for fx in 10 years time. IMPRESSION: Osteopenia (T Score between -2.5 and -1). There is slightly increased risk of fracture and the patient may be considered for treatment. Re-Screen 2-5 years. NOTE: T-SCORE=SD OF THE YOUNG ADULT MEAN.
--- NOTE | 2023-12-22 08:46 | MM ---
Reason for Exam: Screening (asymptomatic). Last mammogram was performed 1 year(s) and 1 month(s) ago. Patient History: Menarche at age 10. First Full-Term at age 16. Left ovary removed at age 43. Right ovary removed at age 43. Postmenopausal. Risk Values: Gabrielle 5 year model risk: 1.2%. NCI Lifetime model risk: 4.6%. Prior Study Comparison: 12/19/2021 Right MG work up mamm w CAD RT, [facility]. 03/11/2022 Right MG 3D diag mammo w/cad RT, [facility]. 12/16/2022 Bilateral MG 3D screening mammo w/cad, [facility]. Tissue Density: There are scattered areas of fibroglandular density. Findings: Analyzed By CAD. There is no suspicious group of microcalcifications or new suspicious mass in either breast. Benign-appearing calcifications. Stable asymmetric density left breast. Overall Assessment: Benign, BI-RAD 2 Management: Screening Mammogram of both breasts in 1 year. . Patient should continue monthly self-breast exams. A clinical breast exam by your physician is recommended on an annual basis. This exam should not preclude additional follow-up of suspicious palpable abnormalities. Note on Gabrielle scores and lifetime risk: 1. A Gabrielle score greater than 3% is considered moderate risk. If this is the case, consider specialist referral to assess eligibility for a risk reducing agent. 2. If overall lifetime risk for the development of breast cancer is 20% or higher, the patient may qualify for future screening with alternating mammogram and breast MRI. Electronically signed and approved by: Lon Arriola M.D. Radiologis
== END | disposition home or self-care (01) ==
LOC: RADMAMWWP 08:22
PROVIDERS: ATTEND Family Medicine
DX: Z12.31 Encounter for screening mammogram for malignant neoplasm of breast (principal); M85.89 Other specified disorders of bone density and structure, multiple sites; Z78.0 Asymptomatic menopausal state
CPT/HCPCS: 77063; 77067; 77080

== ENCOUNTER 2025-01-15 10:27 | Day surgery (SDC) | payer MEDICARE ==
[2025-01-11 11:29] VITALS: BMI 43.4
--- NOTE | 2025-01-15 10:52 | XR ---
EXAMINATION TYPE: XR KUB DATE OF EXAM: 01/15/2025 COMPARISON: CT abdomen pelvis 01/07/2025 HISTORY: N20.0 CALCULUS OF KIDNEY TECHNIQUE: Single supine KUB image of the abdomen is obtained FINDINGS: Small bowel demonstrates no evidence for dilatation or air fluid levels. Gas and fecal material is seen in non-distended colon. No convincing evidence for pneumoperitoneum. No definitive right renal calculi. Stable 2.1 cm calculus within the left renal pelvis. Stable left r enal lower pole 3 mm calculus. Multiple pelvic phleboliths redemonstrated. The lung bases are clear. The osseous structures are intact. Multilevel degenerative changes of the lumbar spine. Minimal dextr ocurvature of the lumbar spine. IMPRESSION: Couple of left renal calculi redemonstrated. Largest measures 2.1 cm within the region of the left re nal pelvis. [facility], , 01/15/2025 10:50 AM
[2025-01-15] MEDS: IV FLUID CONTINUATION 1,000 ML IV ONE (11:00)
[2025-01-15] MEDS: ONDANSETRON 4 MG/2 ML VIAL IVP ONE (11:21)
[2025-01-15] MEDS: DEXAMETHASONE SOD PHOSPHATE 4 MG/ML 1 ML VIAL IV ONE (11:21)
[2025-01-15] MEDS: LACTATED RINGERS 1,000 ML IV SCH (11:22)
[2025-01-15] MEDS ORDERED: MIDAZOLAM 2 MG/2 ML VIAL ONE (12:11)
[2025-01-15] MEDS ORDERED: PHENYLEPHRINE-0.9% NACL SYG 1,000 MCG/10 ML SYRINGE ONE (12:11)
[2025-01-15] MEDS ORDERED: SUCCINYLCHOLINE CHLORIDE 200 MG/10 ML VIAL IV ONE (12:11)
[2025-01-15] MEDS ORDERED: fentaNYL (PF) 50 MCG/ML 2 ML AMP ONE (12:11)
[2025-01-15] MEDS ORDERED: PROPOFOL 10 MG/ML 20 ML VIAL IV ONE (12:11)
[2025-01-15] MEDS ORDERED: LIDOCAINE 4% LTA KIT (4 ML) TOPICAL ONE (12:11)
[2025-01-15] MEDS ORDERED: ePHEDrine 50 MG/ML 1 ML VIAL ONE (12:11)
[2025-01-15] MEDS ORDERED: LIDOCAINE 1% INJ 10MG/ML (20 ML MDV) ONE (12:11)
--- NOTE | 2025-01-15 12:19 | P.HPIHPCON ---
History of Present Illness H&P Date: 01/15/25 Chief Complaint: Left renal stone This is a 64-year-old female with history of a1.6cm left-sided renal pelvic stone, she is symptomatic from her stone. Option of left-sided ureteroscopy with laser was discussed with her. She is aware of the risk which include but not limited to bleeding, infection, injury to the kidney. Risk of anesthetics was also discussed. Discussed with her also the potential of needing a staged procedure given the size of the stone. She understood all the risk and agreed to proceed Consent for Procedure: I have explained the operation/procedure to the patient, including the risks, benefits, side effects, alternative therapies (including not receiving the proposed treatment or service), the likelihood of the patient achieving his/her goals, and potential recuperation problems for the procedure/sedation/analgesia, as well as any blood products, if indicated. I also explained to the patient the risks, benefits and side effects of the alternatives, as well as the risks related to not receiving the proposed procedure, care, treatment, or services. Past Medical History Past Medical History: Hyperlipidemia, Supraventricular Tachycardia (SVT) Additional Past Medical History / Comment(s): hx episode of SVT, arthritis in knees, restless leg, kidney stones. History of Any Multi-Drug Resistant Organisms: None Reported Past Surgical History: Joint Replacement, Orthopedic Surgery Additional Past Surgical History / Comment(s): anastasia carpal tunnel release, left k nee, cataracts bilat. Past Anesthesia/Blood Transfusion Reactions: Motion Sickness Additional Past Anesthesia/Blood Transfusion Reaction / Comment(s): no blood transfusions. Smoking Status: Current every day smoker - Past Family History Father Family Medical History: Cancer Additional Family Medical History / Comment(s): lung cancer Mother Family Medical History: CVA/TIA Medications and Allergies Home Medications Medication Instructions Recorded Confirmed Type Sodium Chloride 5% Ophth Soln 1 drops BOTH EYES QID 03/25/16 01/15/25 History [Yo 128] cycloSPORINE 0.05% OPHTH SOLN 1 applicator BOTH EYES Q12H 03/25/16 01/15/25 History [Restasis] rOPINIRole HCL [Requip] 1 mg PO HS 03/25/16 01/15/25 History Rosuvastatin Calcium 10 mg PO HS 02/26/22 01/15/25 History Ketorolac [Toradol] 10 mg PO TID PRN 01/11/25 01/15/25 History Ondansetron [Zofran] 4 mg PO Q8HR PRN 01/11/25 01/15/25 History oxyCODONE HCL/ACETAMINOPHEN 1 each PO TID PRN 01/11/25 01/15/25 History [Oxycodone-Acetaminophn 7.5-325] Allergies Allergy/AdvReac Type Severity Reaction Status Date / Time amoxicillin Allergy Rash/Hives Verified 01/15/25 11:00 Surgical - Exam Vital Signs Temp Pulse Resp BP Pulse Ox 98 F 83 18 135/83 95 01/15/25 11:08 01/15/25 11:08 01/15/25 11:08 01/15/25 11:08 01/15/25 11:08 - General no distress, moderate pain - Eyes normal ocular movement, no pale - ENT normal nares, normal mucosa - Respiratory normal expansion, normal respiratory effort - Abdomen Abdomen: soft, non tender Assessment and Plan Assessment: OR for left-sided ureteroscopy, holmium laser lithotripsy, stone basketing and stent insertion
--- NOTE | 2025-01-15 13:12 | P.OP ---
Date of Procedure: 01/15/25 Preoperative Diagnosis: right renal stone Postoperative Diagnosis: same Procedure(s) Performed: Cystoscopy, left ureteroscopy, holmium lithotripsy, stone basketing and stent insertion Implants: 6 Tongan by 22 cm stent in the left ureter Anesthesia: LILIBETH Surgeon: Hal Forbes Estimated Blood Loss (ml): 5 Pathology: other (Left renal stone) Condition: stable Disposition: PACU Indications for Procedure: This is a 64-year-old female with history of a1.6cm left-sided renal pelvic stone, she is symptomatic from her stone. Option of left-sided ureteroscopy with laser was discussed with her. She is aware of the risk which include but not limited to bleeding, infection, injury to the kidney. Risk of anesthetics was also discussed. Discussed with her also the potential of needing a staged procedure given the size of the stone. She understood all the risk and agreed to proceed Description of Procedure: Patient brought the operating, general esthesia was induced. She was prepped and draped sterile fashion placed in dorsolithotomy position. Cystoscopy with a 21 Tongan sheath was inserted per urethra, cystoscopy was performed showed no abnormality within the bladder. Attention was then carried to the left ureteral orifice which was intubated with a sensor wire, the wire was advanced under fluoroscopy into the kidney. At this time a large radiopaque stone was seen along the left renal shadow. At this time an 1113 Tongan access sheath was passed over the wire into the proximal ureter. The flexible ureteroscope was inserted through the access sheath, renoscopy was performed which showed a large stone in the renal pelvis. Using the holmium laser the stone was dusted, any sizable stone fragments were removed using the stone basket. Repeat renoscopy showed no sizable fragments or injury to the kidney, on fluoroscopy there was no radiopaque density seen. Pullback ureteroscopy was performed showed no injury to the ureter or any ureteral stones, as ureteroscope was withdrawn a sensor wire was advanced through. Next a ureteral stent was passed over the wire, the proximal curl was visualized on fluoroscopy and the distal curl was visualized using cystoscope. The bladder was emptied at the end of the case. Patient tolerated procedure was taken to recovery in stable condition
--- NOTE | 2025-01-15 13:23 | FL ---
EXAMINATION TYPE: FL guidance operating room Intraoperative/procedural fluoroscopic services were pro vided. CLINICAL INDICATION:Female, 64 years old with history of N20.0 RENAL STONE; , [facility] FINDINGS: Fluoroscopic imaging demonstrating left ureteral stent placement. No radiographic evidence for compli cation. Total fluoroscopy time is 15.1 seconds. DAP: [id number] Please see the operative/procedural note for further details. [facility], , 01/15/2025 1:21 PM
[2025-01-15 13:25] VITALS: TEMP 97.4
[2025-01-15] MEDS: HYDROmorphone 0.5 MG/0.5 ML SYRINGE IVP PRN (13:40)
[2025-01-15 15:20] VITALS: BP 128/71; PULSE 71; RESP 18
== END 2025-01-15 14:51 | disposition home or self-care (01) ==
LOC: OR 10:27
PROVIDERS: ATTEND Urology
DX: N20.0 Calculus of kidney (principal); E78.5 Hyperlipidemia, unspecified; F17.200 Nicotine dependence, unspecified, uncomplicated; G25.81 Restless legs syndrome; Z87.442 Personal history of urinary calculi; Z88.0 Allergy status to penicillin; Z79.899 Other long term (current) drug therapy
CPT/HCPCS: 82365; 74018; 52356; J1100; J0690; J2405; J1171